=== PATIENT | female | born 1985 | race African-American/Black ===

== ENCOUNTER 2019-11-25 11:05 | Emergency (ER) | payer OTHER ==
[~2019-11-25] VITALS: Ht 30.5 cm; Wt 63.5 kg
[2019-11-25 11:08] VITALS: BP 124/65
[2019-11-25] MEDS ORDERED: LORazepam Inj 2mg/ml 1ml IM ONE (11:30)
[2019-11-25] MEDS ORDERED: Haloperidol 5mg/ml Inj IM ONE (11:30)
[2019-11-25] MEDS ORDERED: DiphenhydrAMINE 50mg/ml Inj IM ONE (11:30)
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
[2019-11-25 12:20] LABS: BASOPHILS % (AUTO) 0.6 % (0.0-2.0); EOSINOPHILS % (AUTO) 5.6 % (0.0-3.0); HEMATOCRIT 35.2 % (37.0-47.0); HEMOGLOBIN 10.8 G/DL (12.0-16.0); LYMPHOCYTES % (AUTO) 29.3 % (20.0-45.0); MEAN CORPUSCULAR VOLUME 87 FL (80-99); MONOCYTES % (AUTO) 7.6 % (1.0-10.0); PLATELET COUNT 294 K/UL (150-450); RED BLOOD COUNT 4.05 M/UL (4.20-5.40); RED CELL DISTRIBUTION WIDTH 15.4 % (11.6-14.8); WHITE BLOOD COUNT 6.9 K/UL (4.8-10.8)
[2019-11-25 12:26] LABS: ANION GAP 8 mmol/L (5-15); BLOOD UREA NITROGEN 12 mg/dL (7-18); CALCIUM 9.3 MG/DL (8.5-10.1); CARBON DIOXIDE 27 MMOL/L (21-32); CHLORIDE 107 MMOL/L (98-107); CREATININE 0.8 MG/DL (0.55-1.30); POTASSIUM 3.9 MMOL/L (3.5-5.1); SODIUM 142 MMOL/L (136-145)
[2019-11-25 12:31] LABS: ALANINE AMINOTRANSFERASE 27 U/L (12-78); ALBUMIN 3.3 G/DL (3.4-5.0); ALBUMIN/GLOBULIN RATIO 0.9 (1.0-2.7); ALKALINE PHOSPHATASE 65 U/L (46-116); ASPARTATE AMINO TRANSFERASE 24 U/L (15-37); BILIRUBIN,TOTAL 0.2 MG/DL (0.2-1.0)
[2019-11-25 12:53] LABS: APPEARANCE,URINE CLEAR; COLOR,URINE PALE YELLOW
[2019-11-25 12:54] LABS: BILIRUBIN, URINE NEGATIVE (NEGATIVE); GLUCOSE, URINE (UA) NEGATIVE (NEGATIVE); KETONES,URINE NEGATIVE (NEGATIVE); LEUKOCYTE ESTERASE ,URINE 1+ (NEGATIVE); NITRITE,URINE NEGATIVE (NEGATIVE); PH,URINE 6 (4.5-8.0); PROTEIN,URINE NEGATIVE (NEGATIVE); UROBILINOGEN,URINE NORMAL MG/DL (0.0-1.0)
[2019-11-25 14:26] VITALS: BP 118/67
--- NOTE | 2019-11-25 23:29 | Consultation ---
DATE OF CONSULTATION: 11/25/2019 HISTORY OF PRESENT ILLNESS: This is a 36-year-old female with a history of methamphetamine and polysubstance dependence, who has been admitted to the hospital on a 5150 after she was agitated and combative. She was placed on bilateral restraints. She was uncooperative. She was and she was uncooperative with the evaluation and not able to engage. During my evaluation, the patient was calm, was taken out of the restraints, and she was not endorsing any suicidal or homicidal ideation. The patient's toxicology is positive for benzodiazepine and methamphetamines. PAST PSYCHIATRIC HISTORY: The patient did not cooperate with the examination. PAST MEDICAL HISTORY: Nonsignificant. ALLERGIES: No known drug allergies. SUBSTANCE ABUSE HISTORY: Has a history of multiple drug use including methamphetamine and crystal meth. MENTAL STATUS EXAMINATION: The patient is awake, uncooperative. Mood is neutral. Affect is flat. Thought process, there is a paucity of thought content. Thought content, no suicidal or homicidal ideation. Cognition is intact. Insight and judgment is limited. ASSESSMENT: [place] I Polysubstance dependence. Psychotic disorder, rule out substance-induced psychosis. [place] II Deferred. [place] III As above. [place] IV Low. [place] V 50 PLAN: 1. We will discontinue the 5150. 2. The patient should be discharged when medically cleared. 3. Discontinue the . 4. Discussed with the nurse. Stacy Montemayor M.D. DR: SCOTTY JOB#: [id number] CC:
[2019-11-26 05:25] VITALS: BP 118/67
== END 2019-11-26 05:25 | disposition home or self-care (01) ==
LOC: EMR 11:30 → EDBD 11:30 → EMR 11-26 05:25
DX: T50.904A Poisoning by unspecified drugs, medicaments and biological substances, undetermined, initial encounter (principal); F19.20 Other psychoactive substance dependence, uncomplicated; F29 Unspecified psychosis not due to a substance or known physiological condition; X58.XXXA Exposure to other specified factors, initial encounter; Y92.9 Unspecified place or not applicable; Y99.8 Other external cause status
CPT/HCPCS: 36415; 80053; 80307; 81003; 81025; 85025; 96360; 96372; G0480; G0481; J1200; J1630; J7030; Z7502; 99285